=== PATIENT | male | born 1945 | race Caucasian/White ===

== ENCOUNTER → 2017-11-17 | Outpatient (CLI) | payer MEDICARE, OTHER ==
[~2017-11-17] MED LIST: ALPR0.254 PO; ASPI-496 PO; ASPI325T17 PO; ATOR10TA9 PO; CALC-112 PO; DABI150C PO; DIPH25CA61 PO; ECHI350C PO; FURO-92 PO; FURO40TA6 PO; GLUC1TAB55 PO; HYDR-3245 PO; HYDR25TA6 PO; LISI40TA PO; METF500T PO; METO25TA35 PO; MULT1TAB9 PO; NAPR220C2 PO; POTA10TA11 PO; POTA20TA14 PO; PSYL0.5215 PO; RIVA20TA PO; UBID100C24 PO; WARF-36 PO-COUM; move free PO
== END | disposition home or self-care (01) ==
LOC: CVU 07:28
PROVIDERS: ATTEND Internal Medicine Cardiovascular Disease
DX: I34.0 Nonrheumatic mitral (valve) insufficiency (principal); I10 Essential (primary) hypertension; Z95.2 Presence of prosthetic heart valve
CPT/HCPCS: 93306

== ENCOUNTER 2019-12-19 04:04 | Emergency (ER) | payer MEDICARE, OTHER ==
[~2019-12-19] VITALS: Ht 180.3 cm; Wt 100.0 kg
--- NOTE | 2019-12-19 04:21 | NUR ---
Break rn: Pt states he has hx of htn and is on senior living medication for bp. States bp high and "florian been taking my medication like im supposed to." Denies any adam or blurry vision. Gross neuro intact.
--- NOTE | 2019-12-19 04:48 | NUR ---
Destinee rn:Report to [facility].
[2019-12-19] MEDS ORDERED: LIDODERM 5% PATCH TD ONE (05:00)
[2019-12-19 05:06] VITALS: BP 178/96
== END 2019-12-19 06:02 ==
LOC: ED 05:46
DX: I10 Essential (primary) hypertension (principal); E11.9 Type 2 diabetes mellitus without complications; I48.91 Unspecified atrial fibrillation; Z95.4 Presence of other heart-valve replacement
CPT/HCPCS: 99283

== ENCOUNTER → 2020-10-06 | Outpatient (CLI) | payer MEDICARE, OTHER ==
[~2020-10-06] MED LIST changes: -HYDR-3245 PO; +HYDR1TAB53 PO; -LISI40TA PO; +LISI40TA9 PO
== END | disposition home or self-care (01) ==
LOC: CFH 06:46
PROVIDERS: ATTEND Internal Medicine Cardiovascular Disease
DX: I08.8 Other rheumatic multiple valve diseases (principal); I10 Essential (primary) hypertension; E11.9 Type 2 diabetes mellitus without complications; I48.91 Unspecified atrial fibrillation
CPT/HCPCS: 93306